=== PATIENT | male | born 1990 | race Caucasian/White ===

== ENCOUNTER 2019-09-30 08:21 | Day surgery (SDC) | payer BC ==
[~2019-09-30 08:21] MED LIST: Albuterol 0.083% 2.5 MG/3 ML Neb Soln NEB SCH; Lactated Ringers 1,000 ML IV SCH; Lidocaine 1%/Sod Bicarbonate in NS 8.4% 1 ML Syringe IDERM PRN; Sodium Chloride 0.9% 10 ML Syringe FLUSH PRN
[2019-09-30] MEDS ORDERED: Midazolam 1 MG/ML 2 ML SDV ONE (09:13)
[2019-09-30] MEDS ORDERED: Lactated Ringers 1,000 ML ONE (09:13)
[2019-09-30] MEDS ORDERED: Ketorolac 30 MG/ML SDV ONE ×2 (09:13→09:14)
[2019-09-30] MEDS ORDERED: ceFAZolin 1 GM Vial ONE ×2 (09:13→11:11)
[2019-09-30] MEDS ORDERED: Ondansetron 4 MG/2 ML SDV ONE ×2 (09:13→09:14)
[2019-09-30] MEDS ORDERED: Propofol 200 MG/20 ML SDV ONE (09:13)
[2019-09-30] MEDS ORDERED: Dexamethasone 4 MG/ML 5 ML MDV ONE (09:14)
[2019-09-30] MEDS ORDERED: fentaNYL 250 MCG/5 ML SDV ONE (09:14)
[2019-09-30] MEDS ORDERED: Lidocaine 1% 4 ML ONE (09:14)
[2019-09-30] MEDS ORDERED: Metoprolol Tartrate 5 MG/5 ML SDV ONE (09:21)
[2019-09-30] MEDS ORDERED: Triamcinolone Acetonide 40 MG/ML 1 ML MDV ONE (09:55)
--- NOTE | 2019-09-30 10:43 | PCM.PREANE ---
Preanesthetic Assessment - Anesthesia/Transfusion/Family Hx Anesthesia History: Prior Anesthesia Without Reaction Family History of Anesthesia Reaction: No - Review of Systems General: No Symptoms Pulmonary: Cough, Other (Smoker 2 ppd. Occasional cough productive at times. ) Cardiovascular: No Symptoms Gastrointestinal: No Symptoms Neurological: No Symptoms Other: Reports: None - Physical Assessment NPO Status Date: 09/29/19 NPO Status Time: 23:30 Vital Signs: Last Vital Signs Temp 36.3 C 09/30/19 08:55 Pulse 70 09/30/19 08:55 Resp 16 09/30/19 08:55 BP 112/71 09/30/19 08:55 Pulse Ox 97 09/30/19 08:55 Height: 1.8 m Weight: 80.286 kg ASA Class: 2 Mental Status: Alert & Oriented x3 Airway Class: Mallampati = 1 Dentition: Reports: [place](s), Caries Thyro-Mental Finger Breadths: 3 Mouth Opening Finger Breadths: 3 ROM/Head Extension: Full Lungs: Clear to Auscultation, Normal Respiratory Effort, Decreased Breath Sounds Cardiovascular: Regular Rate, Regular Rhythm - Allergies Allergies/Adverse Reactions: Allergies Allergy/AdvReac Type Severity Reaction Status Date / Time Penicillins Allergy Itching Verified 09/29/19 13:47 - Anesthesia Plan Pre-Op Medication Ordered: Anxiolytic, Other (Albuterol neb treatment) - Acknowledgements Anesthesia Type Planned: General Anesthesia Pt an Appropriate Candidate for the Planned Anesthesia: Yes Alternatives and Risks of Anesthesia Discussed w Pt/Guardian: Yes Pt/Guardian Understands and Agrees with Anesthesia Plan: Yes PreAnesthesia Questionnaire Cardiovascular History: Reports: None Respiratory History: Reports: Other (See Below) Other Respiratory History: cough, dypsnea, wheezing, rhonchi Gastrointestinal History: Reports: None Genitourinary History: Reports: Other (See Below) Other Genitourinary History: acquired phimosis, prostatis, circumcision VEHICLE TRIMMER History: Reports: None Other Musculoskeletal History: shoulder labral tear, right rotator cuff tear, shoulder synovitis Neurological History: Reports: None Psychiatric History: Reports: None Endocrine/Metabolic History: Reports: None Hematologic History: Reports: None Immunologic History: Reports: None Oncologic (Cancer) History: Reports: None Dermatologic History: Reports: None - Past Surgical History Head Surgeries/Procedures: Reports: None HEENT Surgical History: Reports: Oral Surgery Cardiovascular Surgical History: Reports: None Respiratory Surgical History: Reports: None GI Surgical History: Reports: None Female Surgical History: Reports: None Male Surgical History: Reports: None Endocrine Surgical History: Reports: None Neurological Surgical History: Reports: None Musculoskeletal Surgical History: Reports: None Oncologic Surgical History: Reports: None Dermatological Surgical History: Reports: None - SUBSTANCE USE Smoking Status *Q: Current Every Day Smoker Recreational Drug Use History: No - HOME MEDS Home Medications: Home Meds Acetaminophen [Tylenol] 650 mg PO Q4H PRN 09/29/19 [History] Acetaminophen/HYDROcodone [Bagley 325-5 MG] 1 - 2 tab PO Q6H PRN #20 tablet 09/30 [Rx] - CURRENT (IN HOUSE) MEDS Current Meds: Current Medications Albuterol (Proventil Neb Soln) 2.5 mg NEB ONETIME WANDA Stop: 09/30/19 18:00 Lactated Ringer's (Ringers, Lactated) 1,000 mls @ 125 mls/hr IV ASDIRECTED WANDA Stop: 09/30/19 23:00 Last Admin: 09/30/19 09:40 Dose: 125 mls/hr Lidocaine/Sodium Bicarbonate (Buffered Lidocaine 1% In Ns 8.4%) 0.25 ml IDERM ONETIME PRN PRN Reason: Prior to IV Start Stop: 09/30/19 18:00 Last Admin: 09/30/19 09:40 Dose: 0.25 ml Sodium Chloride (Saline Flush) 10 ml FLUSH ASDIRECTED PRN PRN Reason: Keep Vein Open Stop: 09/30/19 18:00 Discontinued Medications Bupivacaine HCl (Sensorcaine-Mpf 0.25%) Confirm Administered Dose 40 ml .ROUTE .STK-MED ONE Stop: 09/30/19 09:56 Cefazolin Sodium (Ancef) Confirm Administered Dose 2 gm .ROUTE .STK-MED ONE Stop: 09/30/19 09:14 Dexamethasone (Dexamethasone) Confirm Administered Dose 20 mg .ROUTE .STK-MED ONE Stop: 09/30/19 09:15 Fentanyl (Sublimaze) Confirm Administered Dose 250 mcg .ROUTE .STK-MED ONE Stop: 09/30/19 09:15 Lactated Ringer's (Ringers, Lactated) Confirm Administered Dose 1,000 mls @ as directed .ROUTE .STK-MED ONE Stop: 09/30/19 09:14 Lidocaine HCl (Xylocaine-Mpf 1%) Confirm Administered Dose 4 mls @ as directed .ROUTE .STK-MED ONE Stop: 09/30/19 09:15 Ketorolac Tromethamine (Toradol) Confirm Administered Dose 30 mg .ROUTE .STK- MED ONE Stop: 09/30/19 09:14 Ketorolac Tromethamine (Toradol) Confirm Administered Dose 30 mg .ROUTE .STK- MED ONE Stop: 09/30/19 09:15 Metoprolol Tartrate (Lopressor) Confirm Administered Dose 5 mg .ROUTE .STK-MED ONE Stop: 09/30/19 09:22 Midazolam HCl (Versed 1 Mg/Ml) Confirm Administered Dose 2 mg .ROUTE .STK-MED ONE Stop: 09/30/19 09:14 Ondansetron HCl (Zofran) Confirm Administered Dose 4 mg .ROUTE .STK-MED ONE Stop: 09/30/19 09:14 Ondansetron HCl (Zofran) Confirm Administered Dose 4 mg .ROUTE .STK-MED ONE Stop: 09/30/19 09:15 Propofol (Diprivan 20 Ml) Confirm Administered Dose 400 mg .ROUTE .STK-MED ONE Stop: 09/30/19 09:14 Triamcinolone Acetonide (Kenalog-40) Confirm Administered Dose 80 mg .ROUTE .STK -MED ONE Stop: 09/30/19 09:56
[2019-09-30] MEDS ORDERED: HYDROmorphone 0.5 MG/0.5 ML Syringe ONE (11:11)
[2019-09-30] MEDS: Bupivacaine 0.25% 10 ML SDV ONE ×2 (11:51→12:00)
[2019-09-30] MEDS ORDERED: Albuterol 6.7 GM Inhaler INH ONE (11:57)
[2019-09-30] MEDS ORDERED: Ondansetron 4 MG/2 ML SDV IVPUSH PRN (12:38)
[2019-09-30] MEDS ORDERED: fentaNYL 100 MCG/2 ML SDV IVPUSH PRN (12:38)
[2019-09-30] MEDS ORDERED: HYDROmorphone 0.5 MG/0.5 ML Syringe IVPUSH PRN (12:38)
--- NOTE | 2019-09-30 12:40 | PCM.POSTAN ---
POST ANESTHESIA ASSESSMENT - MENTAL STATUS Mental Status: Somnolent - VITAL SIGNS Vital Signs: Last Vital Signs Temp 36.9 C 09/30/19 12:28 Pulse 70 09/30/19 08:55 Resp 8 L 09/30/19 12:28 BP 98/42 L 09/30/19 12:28 Pulse Ox 99 09/30/19 12:28 - RESPIRATORY Respiratory Status: Respiratory Rate WNL, Airway Patent, O2 Saturation Stable, Supplemental Oxygen - CARDIOVASCULAR CV Status: Pulse Rate WNL, Blood Pressure Stable - GASTROINTESTINAL GI Status: No Symptoms - PAIN Pain Score: 0 - POST OP HYDRATION Hydration Status: Adequate & Stable
[2019-09-30] MEDS ORDERED: Acetaminophen/HYDROcodone 325-5 MG Tab PO PRN (13:02)
--- NOTE | 2019-09-30 14:14 | PCM48HPAN ---
Post Anesthesia Note - EVALUATION WITHIN 48HRS OF ANESTHETIC Vital Signs in Normal Range: Yes Patient Participated in Evaluation: Yes Respiratory Function Stable: Yes Airway Patent: Yes Cardiovascular Function Stable: Yes Hydration Status Stable: Yes Pain Control Satisfactory: Yes Nausea and Vomiting Control Satisfactory: Yes Mental Status Recovered: Yes Vital Signs: Last Vital Signs Temp 36.5 C 09/30/19 13:20 Pulse 81 09/30/19 13:20 Resp 16 09/30/19 13:20 BP 119/70 09/30/19 13:20 Pulse Ox 95 09/30/19 13:20
--- NOTE | 2019-10-04 07:03 | PCM.OPNOTE ---
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
--- NOTE | 2019-10-05 22:08 | OR ---
DATE OF OPERATION: 09/30/2019 SURGEON: Rene Erwin MD OPERATION PERFORMED: Right ulnar nerve decompression with right shoulder injection. PREOPERATIVE DIAGNOSIS: Right ulnar nerve compression neuropathy with right shoulder pain. POSTOPERATIVE DIAGNOSIS: Right ulnar nerve compression neuropathy with right shoulder pain. ANESTHESIA: General LMA with local. ANESTHESIA PROVIDER: Ceci Naik. RUSSIAN LANGUAGE INSTRUCTOR: Gia Fox PA-C. ESTIMATED BLOOD LOSS: 5 mL. COMPLICATIONS: None. CONDITION: Stable. DESCRIPTION OF PROCEDURE: The patient was identified in the preop holding area. Proper site was marked and identified by the surgeon. The patient was taken back to the operating theater where after adequate anesthesia, the patient's right upper extremity had a nonsterile tourniquet applied and it was then sterilely prepped and draped in the usual sterile fashion. OR time-out was performed. The patient received 2 g IV antibiotics. At this time, the right upper extremity was exsanguinated and tourniquet was insufflated to 225 mmHg. Standard curvilinear incision was made centered over the cubital tunnel and up toward the triceps fascia. The nerve was identified at the triceps fascia. The triceps fascia was released around the nerve. This was taken down to the arcade of [place] and through the cubital tunnel distally to the forearm fascia. It was found to be adequate release both proximally and distally with good return of blood flow. There was no nerve subluxation noted throughout range of motion. So, at this time, it was noted that the patient would not need a transposition. Adequate saline was irrigated through the wound. 2-0 Vicryl was used subcutaneously and esau were used for the skin. The patient was placed in a posterior slab splint and a sterile soft dressing. After this was completed under sterile technique, 2 mL of 40 mg Kenalog and 4 mL and 0.25% Marcaine were injected to right shoulder. Patient tolerated wall. Follow up in 2 weeks' time. MMODAL /[id number]
== END 2019-09-30 14:25 | disposition home or self-care (01) ==
LOC: JD.SDS 08:21
PROVIDERS: ATTEND Orthopaedic Surgery
DX: G56.21 Lesion of ulnar nerve, right upper limb (principal); M25.511 Pain in right shoulder; F17.210 Nicotine dependence, cigarettes, uncomplicated; Z88.0 Allergy status to penicillin
CPT/HCPCS: 64718; 94640; A9270; J0690; J1100; J1170; J1885; J2001; J2250; J2405; J2704; J3010; J3301; J3490; J7120; 01710

== ENCOUNTER 2024-12-08 17:10 | Emergency (ER) | payer BC ==
[2024-12-08] MEDS: Diphtheria,Pertussis(Acell),Tetanus Vaccine 0.5 ML Syringe IM ONE (18:39)
[2024-12-08] MEDS: Ibuprofen 800 MG Tab PO ONE (18:43)
[2024-12-08] MEDS: Acetaminophen/oxyCODONE 325-5 MG Tab PO ONE (18:43)
[2024-12-08] MEDS: Acetaminophen 325 MG Tab PO ONE (18:44)
[2024-12-08] MEDS: Clindamycin HCl 150 MG Cap PO ONE (18:48)
== END 2024-12-08 19:45 | disposition home or self-care (01) ==
LOC: JD.ED 17:10
DX: S61.442A Puncture wound with foreign body of left hand, initial encounter (principal); Z88.0 Allergy status to penicillin; Z79.899 Other long term (current) drug therapy; W45.8XXA Other foreign body or object entering through skin, initial encounter; Y93.89 Activity, other specified; Z23 Encounter for immunization
CPT/HCPCS: 12001; 73120; 90471; 90715; 99283; A9270